=== PATIENT | male | born 1995 ===

== ENCOUNTER 2017-01-18 10:21 | Emergency (ER) | payer OTHER ==
[2017-01-18 11:06] VITALS: BP 111/69; PULSE 66; RESP 20; TEMP 98.6; O2SAT 100
--- NOTE | 2017-01-18 11:10 | C.PDOC ---
History Of Present Illness 21 yr old male presents to the ER s/p being hit in the face by a tool while at work. Patient reports of a laceration to the left side of his upper lip, with minimal bleeding. Patient denies LOC, vision changes, loose teeth, mouth swelling, neck pain or headache. 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 Eyes: Negative for: Vision Change ENT: Negative for: Mouth Swelling Musculoskeletal: Negative for: Neck Pain Skin: Positive for: Other ((+) Laceration to the left side of lips.) Neurological: Negative for: Headache Physical Exam - Physical Exam Appears: Non-toxic, No Acute Distress Skin: Warm, Dry, No Rash Head: Atraumatic, Normacephalic Lips: Laceration (1cm laceration to the inside of lip. ), Other ((+) Small abrasion to the outside of upper lip, left side.) Teeth: Normal Dentition, No Loose Throat: Normal, No Erythema, No Exudate, No Drooling Neck: Normal, Normal ROM, No Supple Chest: Symmetrical, No Tenderness Cardiovascular: Rhythm Regular, No Murmur Respiratory: Normal Breath Sounds, No Rales, No Rhonchi, No Stridor, No Wheezing Extremity: Normal ROM, No Swelling Neurological/Psych: Oriented x3, Normal Speech, Normal Motor ED Course And Treatment O2 Sat by Pulse Oximetry: 100 (RA) Pulse Ox Interpretation: Normal Progress Note: Wounds were rinsed out. Patient informed the laceration will heal on its own. Medical Decision Making Medical Decision Making: PLAN: * Motrin PO Disposition Counseled Patient/Family Regarding: Diagnosis, Need For Followup - Disposition Disposition: HOME/ ROUTINE Disposition Time: 11:09 Condition: STABLE Instructions: Facial Laceration (ED) Forms: General Discharge Instructions, Storage Made Easy (Monegasque), Work Excuse - POA Present On Arrival: None - Clinical Impression Clinical Impression: Laceration of mouth - Scribe Statement The provider has reviewed the documentation as recorded by the Scribe Gillian Jeter Provider Attestation: All medical record entries made by the Scribe were at my direction and personally dictated by me. I have reviewed the chart and agree that the record accurately reflects my personal performance of the history, physical exam, medical decision making, and the department course for this patient. I have also personally directed, reviewed, and agree with the discharge instructions and disposition.
== END 2017-01-18 11:35 | disposition home or self-care (01) ==
LOC: C.ER 10:21
DX: S01.511A Laceration without foreign body of lip, initial encounter (principal); W20.8XXA Other cause of strike by thrown, projected or falling object, initial encounter; Y93.89 Activity, other specified; Y92.89 Other specified places as the place of occurrence of the external cause; Y99.0 Civilian activity done for income or pay